=== PATIENT | male | born 1950 | race Caucasian/White ===

== ENCOUNTER → 2019-11-11 | Outpatient (REF) | payer MEDICARE ==
[~2019-11-11] MED LIST: ADV250INH INH; ASPI81TA86 PO; CLOP75TA2 PO; PRED20TA PO; VENTAER INH
[2019-11-11 19:39] LABS: HEPATITIS A ANTIBODY IGM NEGATIVE (NEGATIVE); HEPATITIS B CORE ANTIBODY IGM NEGATIVE (NEGATIVE); HEPATITIS B SURFACE ANTIGEN NEGATIVE (NEGATIVE); HEPATITIS C VIRUS ABY INDEX 0.3 INDEX (<0.8)
== END ==
LOC: M LAB REF 08:43
PROVIDERS: ATTEND Internal Medicine
DX: Z11.59 Encounter for screening for other viral diseases (principal)

== ENCOUNTER 2019-11-26 17:52 | Emergency (ER) | payer MEDICARE, SELFPAY ==
[~2019-11-26] VITALS: Ht 154.9 cm; Wt 61.5 kg
[2019-11-26] MEDS ORDERED: CLOP75TA2 PO (18:01)
[2019-11-26] MEDS ORDERED: ADV250INH INH (18:01)
[2019-11-26] MEDS ORDERED: ASPI81TA86 PO (18:01)
[2019-11-26] MEDS ORDERED: COMBIVENT RESPIMAT 100-20MCG INHALER 4GM INH ONE (18:45)
[2019-11-26] MEDS ORDERED: methylPREDNISolone 125MG 2ML VIAL IV ONE (18:45)
[2019-11-26 18:54] LABS: BASO # 0.1 10^3/uL (0.0-0.2); BASO % 0.7 % (0.0-1.0); EOS # 0.2 10^3/uL (0.0-0.5); EOS % 1.9 % (0.0-3.0); HEMATOCRIT 52.2 % (42.0-52.0); HEMOGLOBIN 17.3 g/dl (13.5-17.5); LYMPH # 1.2 10^3/uL (1.5-5.0); LYMPH % 14.3 % (24.0-44.0); MEAN CORPUSCULAR HEMOGLOBIN 33.8 pg (27.0-33.0); MEAN CORPUSCULAR HGB CONC 33.1 g/dl (32.0-36.5); MONO # 0.9 10^3/uL (0.0-0.8); MONO % 10.3 % (0.0-5.0); NEUTROPHILS # 6.1 10^3/uL (1.5-8.5); NEUTROPHILS % 72.4 % (36.0-66.0); PLATELET COUNT, AUTOMATED 173 10^3/uL (150-450); RED BLOOD COUNT 5.12 10^6/uL (4.30-6.10); WHITE BLOOD COUNT 8.4 10^3/uL (4.0-10.0)
[2019-11-26 19:25] LABS: ALBUMIN 3.6 GM/DL (3.2-5.2); ALT/SGPT 26 U/L (12-78); BILIRUBIN,DIRECT 0.1 MG/DL (0.0-0.2); BILIRUBIN,TOTAL 0.3 MG/DL (0.2-1.0); BLOOD UREA NITROGEN 15 MG/DL (7-18); CALCIUM LEVEL 9.4 MG/DL (8.8-10.2); CARBON DIOXIDE LEVEL 32 MEQ/L (21-32); CHLORIDE LEVEL 105 MEQ/L (98-107); CK-MB VALUE MASS 1.4 NG/ML (<3.6); CPK CREATINE PHOSPHOKINASE 78 U/L (39-308); CREATININE FOR GFR 1.24 MG/DL (0.70-1.30); GLOMERULAR FILTRATION RATE > 60.0 (>49); GLUCOSE, FASTING 105 MG/DL (70-100); MB/CK RELATIVE INDEX 1.79 (< OR =4); NT-PRO BNP 670 PG/ML (<125); POTASSIUM SERUM 4.7 MEQ/L (3.5-5.1); SODIUM LEVEL 140 MEQ/L (136-145); TOTAL PROTEIN 7.3 GM/DL (6.4-8.2); TROPONIN I < 0.02 NG/ML (< 0.10)
[2019-11-26] MEDS ORDERED: IPRATROPIUM 0.5MG/ALBUTEROL 2.5MG INH SOL UD 3ML (DUONEB) NEB ONE (20:15)
--- NOTE | 2019-11-26 20:38 | REPVR ---
PROCEDURE INFORMATION: Exam: XR Chest, 2 Views Exam date and time: 11/26/2019 8:11 PM Age: 69 years old Clinical indication: Shortness of breath; Additional info: SOB TECHNIQUE: Imaging protocol: XR of the chest Views: 2 views. COMPARISON: No relevant prior studies available. FINDINGS: Lungs: Unremarkable. No consolidation. Pleural space: Unremarkable. No pleural effusion. No pneumothorax. Heart/Mediastinum: Unremarkable. No cardiomegaly. Bones/joints: Unremarkable. IMPRESSION: No acute findings. Electronically signed by: Quintin Canada On 11/26/2019 20:38:21 PM
[2019-11-26] MEDS ORDERED: VENTAER INH (21:29)
[2019-11-26] MEDS ORDERED: PRED20TA PO (21:30)
[2019-11-26 21:49] VITALS: BP 143/70
--- NOTE | 2019-11-27 12:08 | ECGEPIP ---
[facility] - ED Test Date: 2019-11-26 Pat Name: PERFECTO DOBBINS Department: Room: - Gender: Male Manager Shift: : 1950 Requested By: FATOU Mendiola Order Number: [id number] Reading MD: Francisco Helm Measurements Intervals [place] Rate: 89 P: 49 SC: 155 QRS: 45 QRSD: 100 T: 47 QT: 370 QTc: 451 Interpretive Statements SINUS RHYTHM POOR R WAVE PROGRESSION BASELINE ARTIFACT AFFECTS INTERPRETATION NO PRIORS FOR COMPARISON Electronically Signed on 11-27-2019 12:07:50 EDT by Francisco Helm
== END 2019-11-26 21:51 | disposition home or self-care (01) ==
LOC: M ED 17:52
DX: J45.901 Unspecified asthma with (acute) exacerbation (principal); J44.9 Chronic obstructive pulmonary disease, unspecified; I73.9 Peripheral vascular disease, unspecified; F17.200 Nicotine dependence, unspecified, uncomplicated; Z79.82 Long term (current) use of aspirin; Z79.899 Other long term (current) drug therapy
CPT/HCPCS: 71046; 80048; 80076; 82550; 82553; 83880; 84443; 84484; 85025; 87486; 87581; 87633; 87798; 93005; 93041; 94640; 94760; 96374; 99285; J2930

== ENCOUNTER → 2019-12-02 | Outpatient (CLI) | payer MEDICARE ==
--- NOTE | 2019-12-08 14:15 | REP ---
LOW DOSE LUNG SCREENING: CLINICAL: Nicotine dependence. TECHNIQUE: Axial noncontrast images using low dose screening technique. FINDINGS: Mild/moderate emphysematous changes are appreciated. A few scattered small nodules measuring less than 4 mm are identified bilaterally. No consolidation, further significant nodule or mass lesion. No effusion. The tracheobronchial tree is patent. IMPRESSION: Lung-RADS category 2 examination. Measurement recommendations include annual surveillance. MTDD
== END ==
LOC: M RAD 08:26
PROVIDERS: ATTEND Internal Medicine
DX: Z12.2 Encounter for screening for malignant neoplasm of respiratory organs (principal); F17.210 Nicotine dependence, cigarettes, uncomplicated; J43.9 Emphysema, unspecified

== ENCOUNTER → 2020-02-07 | Outpatient (CLI) | payer MEDICARE ==
--- NOTE | 2020-02-08 08:11 | REP ---
INDICATION: PVD. History of prior angioplasty. COMPARISON: None. TECHNIQUE: Bilateral lower extremity arterial Doppler ultrasound. FINDINGS: Ankle brachial indices could not be achieved on either side due to noncompressible vessels. Extensive plaquing is observed bilaterally. Increased velocities are observed bilaterally in the common femoral arteries, left greater than right question inflow stenotic disease. There is evidence of mild stenosis in the right proximal superficial femoral artery. And on the left, the proximal and mid superficial femoral artery segments are occluded. Reconstitution distally. Left distal anterior tibial artery occlusion is also noted. Monophasic waveforms are noted throughout the left lower extremity. Monophasic waveforms are noted on the right in the tibioperoneal trunk and the distal posterior and anterior tibial arteries. Right lower extremity arterial Doppler velocity chart: Right CHEMISTRY TECHNICAL OFFICER PSV 202 cm/S Profundal 103 Proximal SFA 235 Mid SFA 71 Distal SFA 113 Popliteal 93 Proximal AMANDA 59 Tibial-peroneal trunk 65 Proximal PILER 36 Distal PILER 115 Distal AMANDA 51 Left lower extremity arterial Doppler velocity chart: Left CHEMISTRY TECHNICAL OFFICER PSV 331 cm/S Profundal 129 Proximal SFA occluded Mid SFA occluded Distal SFA 49 Popliteal 41 Proximal AMANDA 29 Tibial-peroneal trunk 43 Proximal PILER 33 Distal PILER 27 Distal AMANDA occluded IMPRESSION: Bilateral lower extremity arterial Doppler ultrasound as above with extensive atherosclerotic disease. SFA occlusion on the left. Distal AMANDA occlusion on the left. <Electronically signed by Glenroy Rob > 02/08/20 0850
== END ==
LOC: M RAD 12:48
PROVIDERS: ATTEND Internal Medicine
DX: I73.9 Peripheral vascular disease, unspecified (principal)

== ENCOUNTER → 2020-02-24 | Outpatient (CLI) | payer MEDICARE ==
[2020-02-24 15:15] LABS: HEMATOCRIT 54.1 % (42.0-52.0); HEMOGLOBIN 17.8 g/dl (13.5-17.5); MEAN CORPUSCULAR HEMOGLOBIN 33.4 pg (27.0-33.0); MEAN CORPUSCULAR HGB CONC 32.9 g/dl (32.0-36.5); MEAN CORPUSCULAR VOLUME 101.5 fl (80.0-96.0); PLATELET COUNT, AUTOMATED 166 10^3/uL (150-450); RED BLOOD COUNT 5.33 10^6/uL (4.30-6.10); WHITE BLOOD COUNT 6.8 10^3/uL (4.0-10.0)
[2020-02-24 15:44] LABS: CREATININE FOR GFR 1.29 MG/DL (0.70-1.30); GLOMERULAR FILTRATION RATE 58.8 (>49); POTASSIUM SERUM 4.4 MEQ/L (3.5-5.1)
== END ==
LOC: M LAB 14:17
PROVIDERS: ATTEND Physician Assistant
DX: I70.213 Atherosclerosis of native arteries of extremities with intermittent claudication, bilateral legs (principal); I87.2 Venous insufficiency (chronic) (peripheral)

== ENCOUNTER → 2020-03-13 | Outpatient (CLI) | payer MEDICARE ==
[~2020-03-13] MED LIST changes: +CLOPIDOGREL 75 MG TAB As Ordered ONE; +CLOPIDOGREL 75 MG TAB PO ONE; +ISOVUE-300 61% 50ML VIAL As Ordered ONE; +LIDOCAINE 1% MDV 20ML VIAL As Ordered ONE; +MIDAZOLAM INJ 2MG/2ML VIAL (J2250 PER 1MG) As Ordered ONE; +fentaNYL 100 MCG/2 ML INJECTION (J3010) As Ordered ONE; +hydrALAZINE 20MG/ML 1ML VIAL (J0360 PER 20MG) As Ordered ONE
--- NOTE | 2020-03-13 09:48 | ROOPDOC ---
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 Ultrasound-guided access right common femoral artery 2. Aortoiliofemoral arteriogram 3. Selection left profunda and left lower extremity runoff 4. 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 Angioplasty left superficial femoral and popliteal artery with 4 x 200 [place] balloon 6. Stent proximal left popliteal artery with 5 x 150 Innova stent and extension into superficial femoral artery origin with 6 x 150 Innova stent and 6 x 40 Innova stent 7. Post-dilation left popliteal femoral stent with 5 x 200 [place] balloon 8. Stent left external iliac artery with 7 x 57 express stent in proximal extension to origin of left common iliac artery with 8 x 57 express stent 9. Predilation right external iliac artery and common iliac artery with 5 x 200 [place] balloon 10. Stent proximal external iliac artery in the distal common iliac artery was 7 x 57 express stent 11. Completion arteriograms 12. Mynx closure right common femoral artery SURGEON: Favio Christie MD ANESTHESIA: Local anesthesia 4 mL lidocaine. Moderate intravenous conscious sedation was supervised by Dr. Christie. The patient was independently monitored by registered nurse assigned to the Department of radiology using automated blood pressure, EKG, and pulse oximetry. The details sedation record is permanently stored in the hospital information system. The following is a brief sedation record: Start time 07:54, stop time 09:09, Versed 2 mg IV, fentanyl 100 g IV, heparin 4000 units IV, hydralazine 20 mg IV. CONTRAST: 62 mL Isovue-300 INDICATION FOR PROCEDURE: This is a very pleasant 69-year-old gentleman with atherosclerosis of the campo artery status post intervention on the bilateral lower extremities and June of last year at another institution in [place]. Subsequently, the patient did very well until recently when he began to have increasing lifestyle limiting claudication of the left lower extremity. Risks benefits and alternatives to an arteriogram and potential intervention were explained to the patient. He was extensively counseled about smoking cessation, and we reiterated repeatedly that although intervention will feel if the patient continues to smoke. He is trying to quit at this time. Informed consent was obtained. INTERPRETATION: 1. Distal aorta is calcified but widely patent. There is significant ectasia and mild dilation of the right common iliac artery due to an 80% stenosis at the distal common iliac artery and proximal external iliac artery. Minimal flow was noted and a hypogastric. There is significant plaque in ectasia through the distal external iliac artery into the common femoral artery. Heavy calcified plaque is noted within the common femoral artery. There is flow noted into the proximal SFA and profunda on the right. There is a 75% stenosis near the origin of the left common iliac artery, mild poststenotic dilatation, and ectasia with diffuse stenosis through the distal left common iliac artery and proximal external iliac artery. There is plaque and mild stenosis noted in the common femoral artery, with good flow into the profunda, and a total occlusion of the left superficial femoral artery a few millimeters from the origin. 2. There are extensive collaterals from the left profunda to the distal SFA near Yeison's canal and the popliteal artery. There is a near occlusion at Yeison's canal and reconstitution through additional collaterals distal to this. The popliteal artery has a 70-80% stenosis proximally, and then is diminutive in size but patent distal to this. The main runoff to the foot is through the posterior tibial artery, disease but patent with no significant flow limiting stenoses. The peroneal artery is also patent to the ankle, with extensive collaterals. The proximal aspect of the vessel. The anterior tibial artery is open at the origin but then includes and does not reconstitute distally. Extensive collaterals are present at supply this area of the calf, but the main flow to the foot is through the posterior tibial artery. 3. Selection of the popliteal artery after crossing the chronic total occlusion of the left superficial femoral artery revealed we were in the true lumen. Following this, angioplasty from the origin of the left SFA through to the mid popliteal artery provided in-line flow. There was still significant residual stenosis throughout the area of occlusion, heavy plaque, full limitation, and a tight stenosis in the proximal popliteal artery. After stenting and post dilating, there was widely patent inflow from the origin of the SFA through to the tibial vessels. No extravasation embolization or dissections were noted. 4. After balloon-expandable stents were placed in the left external iliac artery extending up to the origin of the common iliac artery, there is widely patent flow through the left iliac system, dramatically improving inflow to the left lower extremity. There is, however, significant plaque noted again in the left common femoral artery, which may at some point benefit from the left common femoral endarterectomy. No extravasation, embolization, or dissections noted after stenting. 5. After pre-dilating the right external iliac artery and distal common iliac artery and stenting with a balloon-expandable stent, there is widely patent flow through the right iliac system dramatically improving inflow to the right lower extremity. There is, however, still significant heavy plaque in the right common femoral artery, which may at some point benefit from a right common femoral endarterectomy. No extravasation, embolization, or dissections noted after stenting. REPORT OF OPERATION: The patient was brought to the angiographic suite in stable condition. His bilateral groins were prepped and draped in a sterile fashion. Timeout was performed. Sedation was administered without complication. His right groin was anesthetized with local anesthesia and a microneedle was used to access the right common femoral artery under ultrasound guidance. A wire was passed through this access and the needle was removed. A 4 [place] sheath was placed and flushed with saline. Glidewire was carefully advanced through the right iliac system. This proved difficult due to heavy calcified plaque and stenosis. Eventually, we were able to navigate the wire safely into the distal aorta. Flushing catheter was placed over the wire and then aortoiliofemoral arteriogram was performed. Please interpretation above. Next, we went up and over the bifurcation with the Glidewire in the catheter and selected the left profunda artery. Left lower extremity runoff was performed. Please interpretation above. We then exchanged sheath for a 7 x 45 cm sheath and flushed the sheath with saline. A [place] catheter was used with the Glidewire to cross into the chronic total occlusion and left superficial femoral artery. Eventually, we're able to cross distal into the campo popliteal artery and a quick arteriogram confirmed we were in the true lumen. Over the wire, we angioplasties with a 4 x 200 [place] balloon along the length of the occlusion and for three-minute inflations across the proximal and mid popliteal artery. Following this, findings are noted above. We then selected a 5 x 150 Innova stent. The patient had fairly diminutive sized vessels. This was deployed in the proximal popliteal artery starting just distal to the area of heavy his stenosis, and extending up proximal to Yeison's canal. We then extended this with a 1 cm overlap proximally with a 6 x 150 Innova stent, and then stented to the origin with a 1 cm overlap with 6 x 40 Innova stent. A quick arteriogram through the sheath made sure that we were not going to detention the profunda. Following this we postdilated with a 5 x 200 [place] balloon. Widely patent flow was noted throughout the SFA with good runoff distally. We then retracted the sheath up to the proximal common iliac artery on the left. A 7 x 57 balloon- expandable stent was deployed from the external iliac artery to the distal common iliac artery, and then extended with a 1 cm overlap with an 8 x 57 lumen expandable stent. Following this, there is widely patent flow through the left iliac system with no significant residual stenosis. We then retracted the sheath into the distal right external iliac artery. We predilated the right iliac system with our 5 x 200 [place] balloon. We then selected a 7 x 57 balloon- expandable stent and deployed this from the mid external iliac artery to the distal common iliac artery on the right. Following this there is widely patent flow through the right iliac system. This concluded the procedure. The sheath was exchanged over the wire for short 7 [place] sheath and flushed with saline. A Mynx closure device was deployed on the right common femoral artery with good hemostasis. Pressure was held and sterile dressings were applied. The patient was taken to recovery in stable condition. He tolerated the procedure and the sedation well. He did have some hypertension during the procedure that was fairly persistent, but controlled with hydralazine. ESTIMATED BLOOD LOSS: Approximately 5 mL. COMPLICATIONS: None. PLAN: Okay to resume home diet and medications. The patient will take Plavix in recovery prior to discharge. He will resume his home dose of Plavix in the morning. No strenuous activity or lifting greater than 5 pounds for 72 hours. We will see the patient back in a week to check his groin access site and see how he is doing with this perfusion. We continue strongly recommend smoking cessation for limb preservation long-term. If symptoms persist in the future, I may recommend femoral endarterectomies, possibly left femoropopliteal bypass if his SFA stent spell. We did not treat the left anterior tibial artery occlusion today, and this is also something we could address in the future, but since the patient is still smoking and does not have any wounds, I did not feel it was necessary to address this today. I think improving his inflow and the SFA occlusion will be more than enough to resolve his claudication. We appreciate the opportunity to participate in the care of this patient. FAVIO CHRISTIE MD Mar 13, 2020 09:48
[2020-03-13 13:31] VITALS: BP 137/77
== END ==
LOC: M IRPRO 06:09
PROVIDERS: ATTEND Surgery Vascular Surgery
DX: I70.213 Atherosclerosis of native arteries of extremities with intermittent claudication, bilateral legs (principal); I70.92 Chronic total occlusion of artery of the extremities; I87.2 Venous insufficiency (chronic) (peripheral); F17.210 Nicotine dependence, cigarettes, uncomplicated; Z79.01 Long term (current) use of anticoagulants; Z79.82 Long term (current) use of aspirin
CPT/HCPCS: 37221; 37226; 75630; 75774; 99152; 99153; C1725; C1760; C1769; C1876; C1887; C1894; J0360; J1644; J2250; J3010; Q9967

== ENCOUNTER → 2020-04-21 | Outpatient (CLI) | payer MEDICARE ==
[~2020-04-21] MED LIST changes: -CLOPIDOGREL 75 MG TAB As Ordered ONE; -CLOPIDOGREL 75 MG TAB PO ONE; -ISOVUE-300 61% 50ML VIAL As Ordered ONE; -LIDOCAINE 1% MDV 20ML VIAL As Ordered ONE; -MIDAZOLAM INJ 2MG/2ML VIAL (J2250 PER 1MG) As Ordered ONE; -fentaNYL 100 MCG/2 ML INJECTION (J3010) As Ordered ONE; -hydrALAZINE 20MG/ML 1ML VIAL (J0360 PER 20MG) As Ordered ONE
--- NOTE | 2020-04-24 02:19 | REP ---
INDICATION: ATHEROSCLEROSIS COMPARISON: 02/07/2020 TECHNIQUE: Real time gordillo scale and color Doppler evaluation of the bilateral lower extremity arterial vasculature using linear high frequency transducer. FINDINGS: Gordillo scale and color images demonstrate moderate to severe bilateral atheromatous plaquing (right greater than left). Doppler interrogation demonstrates biphasic arterial wave forms bilaterally. Right lower extremity: ROSALIA equals 0.88. Superficial femoral artery-popliteal artery stent is patent. There is evidence of stenosis at the common femoral artery, 1.8:1 stenosis at the popliteal artery, and 5:1 stenosis at the proximal anterior tibial artery along with 2.5:1 stenosis in the mid anterior tibial artery. Area of occlusion is also identified within the distal posterior tibial artery. Left lower extremity: ROSALIA equals 0.89. Superficial femoral artery-popliteal artery stent is patent. There is evidence of stenosis at the common femoral artery, along with areas of occlusion in the mid to distal anterior tibial artery. Peak systolic velocities (cm/sec) Common femoral artery: Right 177/247; Left 218/325 Profunda femoris: Right 185; Left 207 SFA (proximal): Right 182; Left 151 SFA (mid): Right 81; Left 86 SFA (distal): Right 81; Left 66 Popliteal artery: Right 72/125; Left 71/62 AMANDA (prox.): Right 63/312; Left 72 Tibioperoneal trunk: Right 64; Left 75 ENTRY LEVEL ELECTRICIAN (prox.): Right 41; Left 91 ENTRY LEVEL ELECTRICIAN (distal): Right occluded; Left 72 AMANDA (distal): Right 58; Left occluded with evidence of reversed flow in the dorsalis pedis IMPRESSION: Moderate to significant atheromatous plaquing with areas of stenosis and occlusion as described above. <Electronically signed by Brady Thomas > 04/24/20 0125
== END ==
LOC: M RAD 12:28
PROVIDERS: ATTEND Physician Assistant
DX: I70.213 Atherosclerosis of native arteries of extremities with intermittent claudication, bilateral legs (principal)

== ENCOUNTER → 2020-11-06 | Outpatient (CLI) | payer MEDICARE ==
--- NOTE | 2020-11-08 10:34 | REP ---
INDICATION: PVD COMPARISON: 04/21/2020 TECHNIQUE: Real time crum scale and color Doppler evaluation of the bilateral lower extremity arterial vasculature using linear high frequency transducer. FINDINGS: RIGHT LOWER EXTREMITY ROSALIA: 0.79 There is significant atheromatous plaquing throughout the right lower extremity with biphasic arterial wave patterns noted at the common femoral artery and profundus followed by monophasic wave patterns to the ankle. There is 2.8:1 stenosis in the proximal anterior tibial artery with decreased flow to the ankle. LEFT LOWER EXTREMITY ROSALIA: 0.76 There is significant atheromatous plaquing noted at the common femoral artery/profundus and monophasic wave patterns are noted throughout the left lower extremity including stent. A stent is identified extending from the proximal superficial femoral artery to the popliteal artery which appears patent and without obvious luminal narrowing/stenosis or occlusion. There is 2:1 stenosis at the proximal posterior tibial artery and signs to suggest occlusion of the distal anterior tibial artery. PEAK SYSTOLIC VELOCITIES (CM/SEC) Common femoral artery: Right 180; Left 126 Profunda femoris: Right 168; Left 105 SFA (proximal): Right 202; Left (stent) 212 SFA (mid): Right 54; Left (stent) 77 SFA (distal): Right 78; Left (stent) 65 Popliteal artery: Right 94; Left 90-140 AMANDA (prox.): Right 79-223; Left 43 Tibioperoneal trunk: Right 61; Left 47 CORPORATE STRATEGY INTERN (prox.): Right 13; Left 69-120 CORPORATE STRATEGY INTERN (distal): Right 8; Left 89 AMANDA (distal): Right 59; Left occluded IMPRESSION: 1. In comparison with prior examination, ROSALIA ratios have mildly worsened and the current examination now demonstrates diffuse monophasic wave patterns. 2. Areas of narrowing and occlusion as described above <Electronically signed by Brady Thomas > 11/08/20 1032
== END ==
LOC: M RAD 13:21
PROVIDERS: ATTEND Internal Medicine
DX: I70.203 Unspecified atherosclerosis of native arteries of extremities, bilateral legs (principal); I77.1 Stricture of artery

== ENCOUNTER → 2021-04-23 | Outpatient (REF) | payer MEDICARE ==
[2021-04-23 16:50] LABS: APPEARANCE, URINE CLEAR (CLEAR); BACTERIA, URINE AUTO 1+ (NEGATIVE); BILIRUBIN, URINE AUTO NEGATIVE (NEGATIVE); BLOOD, URINE BLOOD 2+ (NEGATIVE); COLOR, URINE RED (YELLOW); GLUCOSE, URINE (UA) AUTO 1+ mg/dL (NEGATIVE); KETONE, URINE AUTO TRACE mg/dL (NEGATIVE); LEUKOCYTE ESTERASE, URINE AUTO NEGATIVE (NEGATIVE); MUCUS, URINE SMALL (NEGATIVE); NITRITE, URINE AUTO NEGATIVE (NEGATIVE); PROTEIN, URINE AUTO 2+ mg/dL (NEGATIVE); RBC, URINE AUTO TNTC /HPF (0-3); SQUAMOUS EPITHELIAL CELL UR AU 0 /HPF (0-6); WBC, URINE AUTO 14 /HPF (0-3)
== END ==
LOC: M LAB REF 16:19
PROVIDERS: ATTEND Internal Medicine
DX: R31.9 Hematuria, unspecified (principal)

== ENCOUNTER → 2021-05-02 | Outpatient (CLI) | payer MEDICARE ==
[~2021-05-02] MED LIST changes: +ISOVUE-370 76% 100ML VIAL ONE
== END ==
LOC: M PLAIMG 10:56
PROVIDERS: ATTEND Internal Medicine
DX: R31.9 Hematuria, unspecified (principal)
CPT/HCPCS: 74177; Q9967

== ENCOUNTER → 2021-05-17 | Outpatient (REF) | payer MEDICARE ==
[~2021-05-17] MED LIST changes: -ISOVUE-370 76% 100ML VIAL ONE
[2021-05-17 12:23] LABS: APPEARANCE, URINE CLEAR (CLEAR); BACTERIA, URINE AUTO NEGATIVE (NEGATIVE); BILIRUBIN, URINE AUTO NEGATIVE (NEGATIVE); BLOOD, URINE BLOOD 1+ (NEGATIVE); COLOR, URINE YELLOW (YELLOW); GLUCOSE, URINE (UA) AUTO NEGATIVE (NEGATIVE); KETONE, URINE AUTO NEGATIVE (NEGATIVE); LEUKOCYTE ESTERASE, URINE AUTO NEGATIVE (NEGATIVE); NITRITE, URINE AUTO NEGATIVE (NEGATIVE); PROTEIN, URINE AUTO NEGATIVE (NEGATIVE); RBC, URINE AUTO 2 /HPF (0-3); SPECIFIC GRAVITY URINE AUTO 1.012 (1.002-1.035); SQUAMOUS EPITHELIAL CELL UR AU 0 /HPF (0-6); WBC, URINE AUTO 1 /HPF (0-3)
== END ==
LOC: M SMT 11:48
PROVIDERS: ATTEND Physician Assistant
DX: R31.0 Gross hematuria (principal)

== ENCOUNTER → 2021-05-23 | Outpatient (CLI) | payer MEDICARE | LOC: M RAD 14:17 | PROVIDERS: ATTEND Internal Medicine | DX: R91.8 Other nonspecific abnormal finding of lung field (principal); F17.228 Nicotine dependence, chewing tobacco, with other nicotine-induced disorders ==

== ENCOUNTER → 2021-08-10 | Outpatient (CLI) | payer MEDICARE | LOC: M PLALAB 13:57 | PROVIDERS: ATTEND Physician Assistant | DX: R97.20 Elevated prostate specific antigen [PSA] (principal) ==

== ENCOUNTER → 2021-08-17 | Outpatient (REF) | payer MEDICARE ==
[2021-08-17 18:11] LABS: APPEARANCE, URINE CLEAR (CLEAR); BACTERIA, URINE AUTO NEGATIVE (NEGATIVE); BILIRUBIN, URINE AUTO NEGATIVE (NEGATIVE); BLOOD, URINE BLOOD 2+ (NEGATIVE); COLOR, URINE YELLOW (YELLOW); GLUCOSE, URINE (UA) AUTO NEGATIVE (NEGATIVE); KETONE, URINE AUTO NEGATIVE (NEGATIVE); LEUKOCYTE ESTERASE, URINE AUTO NEGATIVE (NEGATIVE); MUCUS, URINE SMALL (NEGATIVE); NITRITE, URINE AUTO NEGATIVE (NEGATIVE); PROTEIN, URINE AUTO NEGATIVE (NEGATIVE); RBC, URINE AUTO 1 /HPF (0-3); SPECIFIC GRAVITY URINE AUTO 1.009 (1.002-1.035); SQUAMOUS EPITHELIAL CELL UR AU 0 /HPF (0-6); UROBILINOGEN, URINE AUTO 0.2 mg/dL (0.0-2.0); WBC, URINE AUTO 0 /HPF (0-3)
== END ==
LOC: M SMT 16:47
PROVIDERS: ATTEND Physician Assistant
DX: R97.20 Elevated prostate specific antigen [PSA] (principal); Z79.899 Other long term (current) drug therapy
CPT/HCPCS: 81001; 87086; 88108; G0463

== ENCOUNTER 2021-10-26 02:31 | Emergency (ER) | payer MEDICARE ==
[~2021-10-26] VITALS: Ht 152.4 cm; Wt 69.1 kg
[~2021-10-26 02:31] MED LIST changes: -ASPI81TA26 PO; -ATOR40TA75 PO
[2021-10-26] MEDS ORDERED: IPRATROPIUM 0.5MG/ALBUTEROL 2.5MG INH SOL UD 3ML (DUONEB) NEB ONE (03:00)
[2021-10-26] MEDS ORDERED: KETOROLAC 30 MG/ML 1ML VIAL IV ONE (03:10)
[2021-10-26] MEDS ORDERED: traMADol 50 MG TAB (HOME DOSE PACK) PO ONE (04:00)
[2021-10-26 04:05] VITALS: BP 138/75
[2021-10-30] MEDS ORDERED: ATOR40TA75 PO (15:00)
[2021-10-30] MEDS ORDERED: ASPI81TA26 PO (15:00)
== END 2021-10-26 05:19 | disposition home or self-care (01) ==
LOC: M ED 02:31
DX: S52.572A Other intraarticular fracture of lower end of left radius, initial encounter for closed fracture (principal); S52.612A Displaced fracture of left ulna styloid process, initial encounter for closed fracture; W18.30XA Fall on same level, unspecified, initial encounter; Y92.002 Bathroom of unspecified non-institutional (private) residence as the place of occurrence of the external cause; J44.9 Chronic obstructive pulmonary disease, unspecified; F17.200 Nicotine dependence, unspecified, uncomplicated; Z79.82 Long term (current) use of aspirin; Z79.899 Other long term (current) drug therapy
CPT/HCPCS: 70450; 71046; 72125; 73110; 94640; 96374; 99283; J1885

== ENCOUNTER → 2021-10-26 | Outpatient (CLI) | payer MEDICARE ==
[~2021-10-26] MED LIST changes: +ASPI81TA26 PO; +ATOR40TA75 PO
== END ==
LOC: M SOG 11:28
PROVIDERS: ATTEND Orthopaedic Surgery Hand Surgery
DX: S52.532A Colles' fracture of left radius, initial encounter for closed fracture (principal); X58.XXXA Exposure to other specified factors, initial encounter; Y92.9 Unspecified place or not applicable; Y93.9 Activity, unspecified; Y99.9 Unspecified external cause status

== ENCOUNTER → 2021-10-30 | Outpatient (CLI) | payer MEDICARE ==
[~2021-10-30] MED LIST changes: +ASPI81TA26 PO; +ATOR40TA75 PO
== END ==
LOC: M LABSMTC 10:03
PROVIDERS: ATTEND Anesthesiology
DX: Z01.812 Encounter for preprocedural laboratory examination (principal); Z20.822 Contact with and (suspected) exposure to COVID-19

== ENCOUNTER 2021-11-02 09:26 | Day surgery (SDC) | payer MEDICARE ==
[~2021-11-02] VITALS: Ht 144.8 cm; Wt 59.0 kg
[2021-11-02] MEDS ORDERED: dexameTHASONE 10MG/1ML VIAL PRES.FREE (J1100 PER 1MG) PN ONE (10:00)
[2021-11-02] MEDS ORDERED: ROPIvacaine 0.5% 30ML INJECTION (J2795 PER 1MG) PN ONE (10:00)
[2021-11-02] MEDS ORDERED: fentaNYL 100 MCG/2 ML INJECTION IV PRN (10:00)
[2021-11-02] MEDS ORDERED: MIDAZOLAM INJ 2MG/2ML VIAL (J2250 PER 1MG) IV PRN (10:00)
[2021-11-02] MEDS ORDERED: ceFAZolin 2 GM/D5W 50 ML IV BAG (J0690 PER 500MG) As Ordered ONE (10:05)
[2021-11-02] MEDS ORDERED: ceFAZolin SOD 2 GM in IV 1 EA IV ONE (10:10)
[2021-11-02] MEDS ORDERED: BUPIVACAINE HCL 0.25% 30ML VIAL As Ordered ONE (10:53)
[2021-11-02] MEDS ORDERED: MIDAZOLAM INJ 2MG/2ML VIAL (J2250 PER 1MG) As Ordered ONE (11:33)
[2021-11-02] MEDS ORDERED: fentaNYL 100 MCG/2 ML INJECTION As Ordered ONE (11:33)
[2021-11-02] MEDS ORDERED: propofoL 200 MG/20 ML VIAL As Ordered ONE (11:35)
[2021-11-02] MEDS ORDERED: ONDANSETRON 4MG 2ML VIAL As Ordered ONE (11:35)
[2021-11-02] MEDS ORDERED: ACETAMINOPHEN 1000MG 100ML IV BTL (OFIRMEV) (J0131 PER 10MG) As Ordered ONE (11:35)
[2021-11-02] MEDS ORDERED: dexameTHASONE 4 MG/ML 1ML VIAL (J1100 PER 1MG) As Ordered ONE (11:40)
[2021-11-02] MEDS ORDERED: PERC5TAB12 PO (12:48)
[2021-11-02 13:20] VITALS: BP 153/72
[2021-11-03] MEDS ORDERED: UNRESOLVED CLARIFICATION ENTRY XX SCH (00:01)
== END 2021-11-02 13:43 | disposition home or self-care (01) ==
LOC: M SDC 09:26
PROVIDERS: ATTEND Orthopaedic Surgery Hand Surgery
DX: S52.532A Colles' fracture of left radius, initial encounter for closed fracture (principal); W19.XXXA Unspecified fall, initial encounter; Y92.008 Other place in unspecified non-institutional (private) residence as the place of occurrence of the external cause; Y93.9 Activity, unspecified; Y99.9 Unspecified external cause status; J44.9 Chronic obstructive pulmonary disease, unspecified; F17.210 Nicotine dependence, cigarettes, uncomplicated; Z79.51 Long term (current) use of inhaled steroids; Z79.02 Long term (current) use of antithrombotics/antiplatelets; I73.9 Peripheral vascular disease, unspecified; Z79.899 Other long term (current) drug therapy
CPT/HCPCS: 25609; 64415; 76000; C1713; J0131; J0690; J1100; J2250; J2405; J3010

== ENCOUNTER → 2021-11-20 | Outpatient (CLI) | payer MEDICARE ==
[~2021-11-20] MED LIST changes: +PERC5TAB12 PO
== END ==
LOC: M SOG 08:32
PROVIDERS: ATTEND Physician Assistant
DX: Z47.89 Encounter for other orthopedic aftercare (principal); S52.612D Displaced fracture of left ulna styloid process, subsequent encounter for closed fracture with routine healing

== ENCOUNTER → 2021-12-11 | Outpatient (CLI) | payer MEDICARE | LOC: M SOG 08:12 | PROVIDERS: ATTEND Physician Assistant | DX: Z47.89 Encounter for other orthopedic aftercare (principal); S52.613D Displaced fracture of unspecified ulna styloid process, subsequent encounter for closed fracture with routine healing; S52.502D Unspecified fracture of the lower end of left radius, subsequent encounter for closed fracture with routine healing ==

== ENCOUNTER → 2022-01-08 | Outpatient (CLI) | payer MEDICARE | LOC: M SOG 08:29 | PROVIDERS: ATTEND Orthopaedic Surgery Hand Surgery | DX: Z48.89 Encounter for other specified surgical aftercare (principal) ==

== ENCOUNTER → 2022-02-19 | Outpatient (CLI) | payer MEDICARE ==
[2022-02-19 17:47] LABS: APPEARANCE, URINE MANUAL CLEAR (CLEAR); COLOR, URINE MANUAL LT YELLOW (YELLOW)
[2022-02-19 17:49] LABS: BILIRUBIN, URINE MANUAL NEGATIVE (NEGATIVE); BLOOD URINE MANUAL TRACE (NEGATIVE); GLUCOSE, URINE (UA) MANUAL NEGATIVE (NEGATIVE); KETONE, URINE MANUAL NEGATIVE (NEGATIVE); LEUKOCYTE ESTERASE, URINE MAN NEGATIVE (NEGATIVE); NITRITE, URINE MANUAL NEGATIVE (NEGATIVE); PROTEIN, URINE MANUAL NEGATIVE (NEGATIVE); SPECIFIC GRAVITY,URINE MANUAL 1.015 (1.002-1.035); UROBILINOGEN, URINE MANUAL NORMAL (NORMAL)
[2022-02-19 18:37] LABS: WBC, URINE 0-1 /hpf (0-3)
[2022-02-19 18:38] LABS: BACTERIA, URINE NONE SEEN; HYALINE CAST, URINE NONE SEEN /lpf (0-1); MUCUS, URINE SMALL AMOUNT (NEGATIVE); SQUAMOUS EPITHELIAL CELL URINE SMALL AMOUNT /hpf (SMALL AMT)
== END ==
LOC: M PLALAB 10:22
PROVIDERS: ATTEND Physician Assistant
DX: R97.20 Elevated prostate specific antigen [PSA] (principal)

== ENCOUNTER → 2022-02-26 | Outpatient (CLI) | payer MEDICARE ==
[2022-02-26 14:47] LABS: APPEARANCE, URINE MANUAL CLEAR (CLEAR); COLOR, URINE MANUAL LT YELLOW (YELLOW)
[2022-02-26 14:48] LABS: PH,URINE MAN 5.5 UNITS (5.0 - 7.0)
[2022-02-26 14:49] LABS: BILIRUBIN, URINE MANUAL NEGATIVE (NEGATIVE); BLOOD URINE MANUAL POSITIVE (NEGATIVE); GLUCOSE, URINE (UA) MANUAL NEGATIVE (NEGATIVE); KETONE, URINE MANUAL NEGATIVE (NEGATIVE); LEUKOCYTE ESTERASE, URINE MAN NEGATIVE (NEGATIVE); NITRITE, URINE MANUAL NEGATIVE (NEGATIVE); PROTEIN, URINE MANUAL NEGATIVE (NEGATIVE); UROBILINOGEN, URINE MANUAL NORMAL (NORMAL)
[2022-02-26 15:03] LABS: BLOOD UREA NITROGEN 13 MG/DL (9-23); CALCIUM LEVEL 8.6 MG/DL (8.3-10.6); CARBON DIOXIDE LEVEL 25 MMOL/L (20-31); CHLORIDE LEVEL 107 MMOL/L (98-107); CREATININE FOR GFR 1.15 MG/DL (0.70-1.30); GLOMERULAR FILTRATION RATE > 60.0 (>42); GLUCOSE, FASTING 107 MG/DL (74-106); POTASSIUM SERUM 4.6 MMOL/L (3.5-5.1); SODIUM LEVEL 138 MMOL/L (136-145)
[2022-02-26 15:04] LABS: BACTERIA, URINE NONE SEEN; HYALINE CAST, URINE NONE SEEN /lpf (0-1); MUCUS, URINE SMALL AMOUNT (NEGATIVE); SQUAMOUS EPITHELIAL CELL URINE SMALL AMOUNT /hpf (SMALL AMT)
== END ==
LOC: M PLALAB 11:08
PROVIDERS: ATTEND Physician Assistant
DX: R97.20 Elevated prostate specific antigen [PSA] (principal); Z87.898 Personal history of other specified conditions

== ENCOUNTER → 2022-03-01 | Outpatient (CLI) | payer MEDICARE ==
[~2022-03-01] MED LIST changes: +ISOVUE-370 76% 100ML VIAL As Ordered ONE
== END ==
LOC: M RAD 13:49
PROVIDERS: ATTEND Physician Assistant
DX: Z87.898 Personal history of other specified conditions (principal)
CPT/HCPCS: 74178; Q9967

== ENCOUNTER → 2022-03-19 | Outpatient (REF) | payer MEDICARE ==
[~2022-03-19] MED LIST changes: -ISOVUE-370 76% 100ML VIAL As Ordered ONE
== END ==
LOC: M SMT 16:45
PROVIDERS: ATTEND Urology
DX: R31.0 Gross hematuria (principal)

== ENCOUNTER → 2022-04-17 | Outpatient (REF) | payer MEDICARE ==
[~2022-04-17] MED LIST changes: +VALS40TA9 PO
[2022-04-17 18:34] LABS: INR 0.88; PROTHROMBIN TIME 12.1 SECONDS (12.5-14.5)
== END ==
LOC: M LAB REF 16:18
PROVIDERS: ATTEND Internal Medicine
DX: Z01.818 Encounter for other preprocedural examination (principal)

== ENCOUNTER → 2022-04-21 | Outpatient (CLI) | payer MEDICARE | LOC: M LABSMTC 11:21 | PROVIDERS: ATTEND Anesthesiology | DX: Z01.812 Encounter for preprocedural laboratory examination (principal); Z11.52 Encounter for screening for COVID-19 ==

== ENCOUNTER → 2022-04-22 | Outpatient (CLI) | payer MEDICARE ==
[2022-04-22 15:54] LABS: ALBUMIN 3.6 G/DL (3.2-5.2); ALKALINE PHOSPHATASE 97 U/L (46-116); ALT/SGPT 22 U/L (7.0-40); AST/SGOT 25 U/L (<34); BILIRUBIN,TOTAL 0.6 MG/DL (0.3-1.2); BLOOD UREA NITROGEN 20 MG/DL (9-23); CARBON DIOXIDE LEVEL 23 MMOL/L (20-31); CHLORIDE LEVEL 102 MMOL/L (98-107); CREATININE FOR GFR 1.25 MG/DL (0.70-1.30); GLOMERULAR FILTRATION RATE > 60.0 (>42); GLUCOSE, FASTING 89 MG/DL (74-106); POTASSIUM SERUM 4.7 MMOL/L (3.5-5.1); SODIUM LEVEL 136 MMOL/L (136-145); TOTAL PROTEIN 7.2 G/DL (5.7-8.2)
[2022-04-22 15:55] LABS: HEMATOCRIT 51.9 % (42.0-52.0); HEMOGLOBIN 16.7 g/dl (13.5-17.5); MEAN CORPUSCULAR HEMOGLOBIN 32.1 pg (27.0-33.0); MEAN CORPUSCULAR HGB CONC 32.2 g/dl (32.0-36.5); MEAN CORPUSCULAR VOLUME 99.8 fl (80.0-96.0); PLATELET COUNT, AUTOMATED 230 10^3/uL (150-450); WHITE BLOOD COUNT 10.4 10^3/uL (4.0-10.0)
[2022-04-22 16:14] LABS: PROTHROMBIN TIME 13.4 SECONDS (12.5-14.5)
== END ==
LOC: M PLALAB 12:11
PROVIDERS: ATTEND Urology
DX: F17.210 Nicotine dependence, cigarettes, uncomplicated (principal); D49.4 Neoplasm of unspecified behavior of bladder

== ENCOUNTER 2022-04-25 08:46 | Day surgery (SDC) | payer MEDICARE ==
[~2022-04-25] VITALS: Ht 152.4 cm; Wt 58.1 kg
[~2022-04-25 08:46] MED LIST changes: +ceFAZolin SOD 2 GM in IV 1 EA IV ONE
[2022-04-25] MEDS ORDERED: LR 1,000 ML IV SCH ×2 (09:55→11:15)
[2022-04-25] MEDS ORDERED: ONDANSETRON 4MG 2ML VIAL As Ordered ONE (10:00)
[2022-04-25] MEDS ORDERED: LIDOCAINE 2% 100MG/5ML SDV (FOR ANES.) As Ordered ONE (10:00)
[2022-04-25] MEDS ORDERED: ROCURONIUM BROMIDE 50MG/5ML VIAL As Ordered ONE (10:00)
[2022-04-25] MEDS ORDERED: SUGAMMADEX SODIUM 500 MG/5 ML VIAL (BRIDION) As Ordered ONE (10:00)
[2022-04-25] MEDS ORDERED: fentaNYL 100 MCG/2 ML INJECTION As Ordered ONE (10:00)
[2022-04-25] MEDS ORDERED: MIDAZOLAM INJ 2MG/2ML VIAL As Ordered ONE (10:00)
[2022-04-25] MEDS ORDERED: KETOROLAC 60MG 2ML VIAL As Ordered ONE (11:11)
[2022-04-25] MEDS ORDERED: MACR100C43 PO (11:13)
[2022-04-25] MEDS ORDERED: PYRI1TAB5 PO (11:13)
[2022-04-25] MEDS ORDERED: OXYB5TAB10 PO (11:13)
[2022-04-25] MEDS ORDERED: oxyCODONE 5MG TAB PO PRN (11:15)
[2022-04-25] MEDS ORDERED: HYDROMORPHONE HCL 0.5 MG/ 0.5 ML SYRINGE IV PRN (11:15)
[2022-04-25] MEDS ORDERED: ONDANSETRON 4MG 2ML VIAL IV PRN (11:15)
[2022-04-25] MEDS ORDERED: fentaNYL 100 MCG/2 ML INJECTION IV PRN (11:15)
[2022-04-25] MEDS ORDERED: PHENYLephrine 500MCG 5ML (100MCG/ML) SYRINGE As Ordered ONE (11:20)
[2022-04-25 12:37] VITALS: BP 196/91
== END 2022-04-25 12:35 | disposition home or self-care (01) ==
LOC: M SDC 08:46
PROVIDERS: ATTEND Urology
DX: N28.9 Disorder of kidney and ureter, unspecified (principal); I10 Essential (primary) hypertension; E78.5 Hyperlipidemia, unspecified; I73.9 Peripheral vascular disease, unspecified; F17.210 Nicotine dependence, cigarettes, uncomplicated; J44.9 Chronic obstructive pulmonary disease, unspecified; Z79.02 Long term (current) use of antithrombotics/antiplatelets; Z79.51 Long term (current) use of inhaled steroids; Z79.899 Other long term (current) drug therapy; Z79.82 Long term (current) use of aspirin
CPT/HCPCS: 52240; 52332; 88305; C2617; J0690; J1100; J2250; J2370; J2405; J3010

== ENCOUNTER → 2022-10-21 | Outpatient (REF) | payer MEDICARE ==
[~2022-10-21] MED LIST changes: +MACR100C43 PO; +OXYB5TAB10 PO; +PYRI1TAB5 PO; -ceFAZolin SOD 2 GM in IV 1 EA IV ONE
[2022-10-21 19:04] LABS: APPEARANCE, URINE CLEAR (CLEAR); BACTERIA, URINE AUTO NEGATIVE (NEGATIVE); BILIRUBIN, URINE AUTO NEGATIVE (NEGATIVE); BLOOD, URINE BLOOD 1+ (NEGATIVE); COLOR, URINE YELLOW (YELLOW); GLUCOSE, URINE (UA) AUTO NEGATIVE (NEGATIVE); KETONE, URINE AUTO NEGATIVE (NEGATIVE); LEUKOCYTE ESTERASE, URINE AUTO NEGATIVE (NEGATIVE); MUCUS, URINE SMALL (NEGATIVE); NITRITE, URINE AUTO NEGATIVE (NEGATIVE); PROTEIN, URINE AUTO NEGATIVE (NEGATIVE); RBC, URINE AUTO 1 /HPF (0-3); SPECIFIC GRAVITY URINE AUTO 1.011 (1.002-1.035); SQUAMOUS EPITHELIAL CELL UR AU 0 /HPF (0-6); UROBILINOGEN, URINE AUTO 0.2 mg/dL (0.0-2.0); WBC, URINE AUTO 0 /HPF (0-3)
== END ==
LOC: M SMT 17:21
PROVIDERS: ATTEND Urology
DX: Z85.51 Personal history of malignant neoplasm of bladder (principal)

== ENCOUNTER → 2022-12-20 | Outpatient (CLI) | payer MEDICARE ==
[~2022-12-20] MED LIST changes: -OXYB5TAB10 PO; +OXYB5TAB11 PO
== END ==
LOC: M RAD 09:33
PROVIDERS: ATTEND Internal Medicine
DX: Z12.2 Encounter for screening for malignant neoplasm of respiratory organs (principal); F17.210 Nicotine dependence, cigarettes, uncomplicated; R91.8 Other nonspecific abnormal finding of lung field; J43.2 Centrilobular emphysema

== ENCOUNTER → 2023-01-24 | Outpatient (REF) | payer MEDICARE ==
[2023-01-24 18:55] LABS: APPEARANCE, URINE CLEAR (CLEAR); BACTERIA, URINE AUTO NEGATIVE (NEGATIVE); BILIRUBIN, URINE AUTO NEGATIVE (NEGATIVE); BLOOD, URINE BLOOD 1+ (NEGATIVE); COLOR, URINE YELLOW (YELLOW); GLUCOSE, URINE (UA) AUTO NEGATIVE (NEGATIVE); KETONE, URINE AUTO NEGATIVE (NEGATIVE); LEUKOCYTE ESTERASE, URINE AUTO NEGATIVE (NEGATIVE); NITRITE, URINE AUTO NEGATIVE (NEGATIVE); PROTEIN, URINE AUTO NEGATIVE (NEGATIVE); RBC, URINE AUTO 3 /HPF (0-3); SPECIFIC GRAVITY URINE AUTO 1.014 (1.002-1.035); SQUAMOUS EPITHELIAL CELL UR AU 0 /HPF (0-6); UROBILINOGEN, URINE AUTO 0.2 mg/dL (0.0-2.0); WBC, URINE AUTO 0 /HPF (0-3)
== END ==
LOC: M SMT 16:54
PROVIDERS: ATTEND Urology
DX: Z85.51 Personal history of malignant neoplasm of bladder (principal)

== ENCOUNTER → 2023-05-21 | Outpatient (REF) | payer MEDICARE ==
[~2023-05-21] MED LIST changes: -OXYB5TAB11 PO; +OXYB5TAB14 PO
[2023-05-21 18:18] LABS: APPEARANCE, URINE CLEAR (CLEAR); BACTERIA, URINE AUTO NEGATIVE (NEGATIVE); BILIRUBIN, URINE AUTO NEGATIVE (NEGATIVE); BLOOD, URINE BLOOD NEGATIVE (NEGATIVE); COLOR, URINE YELLOW (YELLOW); GLUCOSE, URINE (UA) AUTO NEGATIVE (NEGATIVE); KETONE, URINE AUTO TRACE mg/dL (NEGATIVE); LEUKOCYTE ESTERASE, URINE AUTO NEGATIVE (NEGATIVE); MUCUS, URINE SMALL (NEGATIVE); NITRITE, URINE AUTO NEGATIVE (NEGATIVE); PROTEIN, URINE AUTO 1+ mg/dL (NEGATIVE); RBC, URINE AUTO 2 /HPF (0-3); SPECIFIC GRAVITY URINE AUTO 1.017 (1.002-1.035); SQUAMOUS EPITHELIAL CELL UR AU 0 /HPF (0-6); WBC, URINE AUTO 0 /HPF (0-3)
== END ==
LOC: M SMT 18:00
PROVIDERS: ATTEND Urology
DX: Z85.51 Personal history of malignant neoplasm of bladder (principal)

== ENCOUNTER 2023-08-06 12:41 | Day surgery (SDC) | payer MEDICARE ==
[~2023-08-06] VITALS: Ht 152.4 cm; Wt 55.8 kg
[2023-08-06] MEDS: LIDOCAINE 3.5 % 1ML OPHTH TOPICAL GEL OU ONE (14:47)
[2023-08-06] MEDS ORDERED: MIDAZOLAM INJ 2MG/2ML VIAL As Ordered ONE (15:42)
[2023-08-06] MEDS ORDERED: fentaNYL 100 MCG/2 ML INJECTION As Ordered ONE (15:49)
[2023-08-06] MEDS: POVIDONE-IODINE 5% OPHTH PREP SOL 30ML As Ordered ONE (16:00)
[2023-08-06] MEDS ORDERED: LABETALOL 100MG/20ML VIAL As Ordered ONE (16:04)
[2023-08-06] MEDS: LIDOCAINE 2% W/EPINEPHRINE 20ML VIAL **PRES FREE As Ordered ONE (16:07)
[2023-08-06] MEDS: TOBRADEX OPHTH OINT 3.5 GM As Ordered ONE (16:09)
[2023-08-06 16:20] VITALS: BP 176/89; TEMP 98.2; O2SAT 97
== END 2023-08-06 16:50 | disposition home or self-care (01) ==
LOC: M SDC 12:41
PROVIDERS: ATTEND Ophthalmology
DX: H02.103 Unspecified ectropion of right eye, unspecified eyelid (principal); I10 Essential (primary) hypertension; E78.5 Hyperlipidemia, unspecified; I73.9 Peripheral vascular disease, unspecified; Z79.02 Long term (current) use of antithrombotics/antiplatelets; J44.9 Chronic obstructive pulmonary disease, unspecified; Z79.51 Long term (current) use of inhaled steroids; Z79.899 Other long term (current) drug therapy; F17.218 Nicotine dependence, cigarettes, with other nicotine-induced disorders
CPT/HCPCS: 67924; J1920; J2250; J3010

== ENCOUNTER → 2023-08-20 | Outpatient (REF) | payer MEDICARE ==
[2023-08-20 15:29] LABS: APPEARANCE, URINE CLEAR (CLEAR); BACTERIA, URINE AUTO NEGATIVE (NEGATIVE); BILIRUBIN, URINE AUTO NEGATIVE (NEGATIVE); BLOOD, URINE BLOOD 1+ (NEGATIVE); COLOR, URINE YELLOW (YELLOW); GLUCOSE, URINE (UA) AUTO NEGATIVE (NEGATIVE); KETONE, URINE AUTO NEGATIVE (NEGATIVE); LEUKOCYTE ESTERASE, URINE AUTO NEGATIVE (NEGATIVE); NITRITE, URINE AUTO NEGATIVE (NEGATIVE); PROTEIN, URINE AUTO NEGATIVE (NEGATIVE); RBC, URINE AUTO 4 /HPF (0-3); SPECIFIC GRAVITY URINE AUTO 1.011 (1.002-1.035); SQUAMOUS EPITHELIAL CELL UR AU 0 /HPF (0-6); UROBILINOGEN, URINE AUTO 0.2 mg/dL (0.0-2.0); WBC, URINE AUTO 0 /HPF (0-3)
== END ==
LOC: M SMT 14:48
PROVIDERS: ATTEND Urology
DX: Z85.51 Personal history of malignant neoplasm of bladder (principal)

== ENCOUNTER → 2023-11-19 | Outpatient (REF) | payer MEDICARE ==
[2023-11-19 18:04] LABS: APPEARANCE, URINE CLEAR (CLEAR); BACTERIA, URINE AUTO NEGATIVE (NEGATIVE); BILIRUBIN, URINE AUTO NEGATIVE (NEGATIVE); BLOOD, URINE BLOOD 1+ (NEGATIVE); COLOR, URINE YELLOW (YELLOW); GLUCOSE, URINE (UA) AUTO NEGATIVE (NEGATIVE); KETONE, URINE AUTO NEGATIVE (NEGATIVE); LEUKOCYTE ESTERASE, URINE AUTO NEGATIVE (NEGATIVE); NITRITE, URINE AUTO NEGATIVE (NEGATIVE); PROTEIN, URINE AUTO NEGATIVE (NEGATIVE); RBC, URINE AUTO 1 /HPF (0-3); SPECIFIC GRAVITY URINE AUTO 1.012 (1.002-1.035); SQUAMOUS EPITHELIAL CELL UR AU 0 /HPF (0-6); UROBILINOGEN, URINE AUTO 0.2 mg/dL (0.0-2.0); WBC, URINE AUTO 0 /HPF (0-3)
== END ==
LOC: M SMT 17:21
PROVIDERS: ATTEND Urology
DX: Z08 Encounter for follow-up examination after completed treatment for malignant neoplasm (principal); Z85.51 Personal history of malignant neoplasm of bladder; Z79.82 Long term (current) use of aspirin; Z79.899 Other long term (current) drug therapy; Z79.51 Long term (current) use of inhaled steroids; Z83.3 Family history of diabetes mellitus; F17.210 Nicotine dependence, cigarettes, uncomplicated

== ENCOUNTER → 2024-02-18 | Outpatient (REF) | payer MEDICARE ==
[~2024-02-18] MED LIST changes: -ADV250INH INH; +ADVA1AER9 INH
[2024-02-18 18:42] LABS: APPEARANCE, URINE CLEAR (CLEAR); BACTERIA, URINE AUTO NEGATIVE (NEGATIVE); BILIRUBIN, URINE AUTO NEGATIVE (NEGATIVE); BLOOD, URINE BLOOD NEGATIVE (NEGATIVE); COLOR, URINE YELLOW (YELLOW); GLUCOSE, URINE (UA) AUTO NEGATIVE (NEGATIVE); KETONE, URINE AUTO NEGATIVE (NEGATIVE); LEUKOCYTE ESTERASE, URINE AUTO NEGATIVE (NEGATIVE); MUCUS, URINE SMALL (NEGATIVE); NITRITE, URINE AUTO NEGATIVE (NEGATIVE); PROTEIN, URINE AUTO NEGATIVE (NEGATIVE); RBC, URINE AUTO 1 /HPF (0-3); SQUAMOUS EPITHELIAL CELL UR AU 0 /HPF (0-6); UROBILINOGEN, URINE AUTO 0.2 mg/dL (0.0-2.0); WBC, URINE AUTO 0 /HPF (0-3)
== END ==
LOC: M SMT 17:10
PROVIDERS: ATTEND Urology
DX: Z85.51 Personal history of malignant neoplasm of bladder (principal)

== ENCOUNTER 2024-05-02 20:47 | Inpatient (IN) | payer MEDICARE ==
[~2024-05-02] VITALS: Ht 157.5 cm; Wt 64.3 kg
[2024-05-02] MEDS ORDERED: FLUT1BLS8 INH (20:57)
[2024-05-03] VITALS (8 sets, daily range): BP systolic 123–176; BP diastolic 60–85; TEMP 97.6–99; O2SAT 92–96
[2024-05-03 00:26] LABS: BASO # 0.1 10^3/uL (0.0-0.2); BASO % 0.5 % (0.0-1.0); EOS % 0.2 % (0.0-3.0); HEMATOCRIT 46.6 % (42.0-52.0); HEMOGLOBIN 15.5 g/dl (13.5-17.5); LYMPH # 1.1 10^3/uL (1.5-5.0); LYMPH % 8.3 % (24.0-44.0); MEAN CORPUSCULAR HEMOGLOBIN 33.5 pg (27.0-33.0); MEAN CORPUSCULAR HGB CONC 33.3 g/dl (32.0-36.5); MEAN CORPUSCULAR VOLUME 100.6 fl (80.0-96.0); MONO # 0.7 10^3/uL (0.0-0.8); MONO % 5.1 % (2.0-8.0); NEUTROPHILS # 11.6 10^3/uL (1.5-8.5); NEUTROPHILS % 85.4 % (36.0-66.0); PLATELET COUNT, AUTOMATED 157 10^3/uL (150-450); RED BLOOD COUNT 4.63 10^6/uL (4.30-6.10); WHITE BLOOD COUNT 13.5 10^3/uL (4.0-10.0)
[2024-05-03 00:30] LABS: BLOOD UREA NITROGEN 11 MG/DL (9-23); CALCIUM LEVEL 8.7 MG/DL (8.3-10.6); CARBON DIOXIDE LEVEL 20 MMOL/L (20-31); CHLORIDE LEVEL 108 MMOL/L (98-107); CREATININE FOR GFR 1.05 MG/DL (0.70-1.30); GLOMERULAR FILTRATION RATE > 60.0 (>42); GLUCOSE, FASTING 120 MG/DL (74-106); POTASSIUM SERUM 4.2 MMOL/L (3.5-5.1); SODIUM LEVEL 139 MMOL/L (136-145)
[2024-05-03 01:03] LABS: ETHYL ALCOHOL (ETHANOL) 0.034 % (0.000-0.010)
[2024-05-03] MEDS: MORPHINE 2 MG/ML 1ML VIAL IV ONE (01:05)
[2024-05-03] MEDS: IPRATROPIUM 0.5MG/ALBUTEROL 2.5MG INH SOL UD 3ML (DUONEB) NEB ONE (01:43)
[2024-05-03] MEDS: BOOSTRIX VACCINE (TETANUS/DIPHTH/ACEL. PERTUSSIS) 0.5ML SYR IM.IMMUN ONE (02:12)
[2024-05-03] MEDS: ceFAZolin SOD 2 GM in IV 1 EA IV ONE (02:12)
[2024-05-03] MEDS ORDERED: ceFAZolin SOD 2 GM in DEXTROSE 5% (D5W) ADV/MINI-BAG 50 ML IV SCH (02:15)
[2024-05-03] MEDS ORDERED: MOM 30ML SUSPENSION UDC PO PRN (02:15)
[2024-05-03] MEDS: NS (Normal Saline) 0.9% 1,000 ML IV SCH ×2 (02:49→07:36)
[2024-05-03] MEDS: NICOTINE 21MG/24HR 1 EA TRANSDERMAL TD ONE (02:52)
[2024-05-03] MEDS ORDERED: ALBU8.5H INH (03:27)
[2024-05-03] MEDS ORDERED: HOME MED LIST COMPLETE! XX SCH (03:30)
[2024-05-03] MEDS ORDERED: LORazepam 2 MG TAB PO PRN (04:15)
[2024-05-03] MEDS ORDERED: MORPHINE 4 MG/ML 1ML VIAL IV PRN (04:20)
[2024-05-03] MEDS ORDERED: NORCO, ANEXSIA 5/325MG TABLET (HYDROcodone/ACETAMINOPHEN) PO PRN (04:20)
[2024-05-03] MEDS ORDERED: MORPHINE 2 MG/ML 1ML VIAL IV PRN (04:25)
[2024-05-03] MEDS: THIAMINE 100 MG TAB PO SCH (05:00)
[2024-05-03 07:42] LABS: HEMATOCRIT 45.7 % (42.0-52.0); HEMOGLOBIN 15.2 g/dl (13.5-17.5); MEAN CORPUSCULAR HGB CONC 33.3 g/dl (32.0-36.5); MEAN CORPUSCULAR VOLUME 99.1 fl (80.0-96.0); PLATELET COUNT, AUTOMATED 157 10^3/uL (150-450); RED BLOOD COUNT 4.61 10^6/uL (4.30-6.10); WHITE BLOOD COUNT 9.9 10^3/uL (4.0-10.0)
[2024-05-03 07:47] LABS: ALBUMIN 3.3 G/DL (3.2-5.2); ALKALINE PHOSPHATASE 96 U/L (40-129); ALT/SGPT 19 U/L (7.0-40); AST/SGOT 25 U/L (<34); BILIRUBIN,TOTAL 0.6 MG/DL (0.3-1.2); BLOOD UREA NITROGEN 10 MG/DL (9-23); CALCIUM LEVEL 8.6 MG/DL (8.3-10.6); CARBON DIOXIDE LEVEL 22 MMOL/L (20-31); CHLORIDE LEVEL 110 MMOL/L (98-107); CREATININE FOR GFR 1.07 MG/DL (0.70-1.30); GLOMERULAR FILTRATION RATE > 60.0 (>42); GLUCOSE, FASTING 107 MG/DL (74-106); POTASSIUM SERUM 4.3 MMOL/L (3.5-5.1); SODIUM LEVEL 142 MMOL/L (136-145); TOTAL PROTEIN 6.9 G/DL (5.7-8.2)
[2024-05-03] MEDS: ADVAIR HFA 115/21MCG INHALER INH SCH (09:06)
[2024-05-03] MEDS: TIOTROPIUM INHALER/CAPSULE (SPIRIVA) INH SCH (09:06)
[2024-05-03] MEDS ORDERED: SUGAMMADEX SODIUM 500 MG/5 ML VIAL (BRIDION) As Ordered ONE (09:19)
[2024-05-03] MEDS ORDERED: propofoL 200 MG/20 ML VIAL As Ordered ONE (09:19)
[2024-05-03] MEDS ORDERED: fentaNYL 100 MCG/2 ML INJECTION As Ordered ONE (09:19)
[2024-05-03] MEDS ORDERED: LIDOCAINE 2% 100MG/5ML SDV (FOR ANES.) As Ordered ONE (09:19)
[2024-05-03] MEDS ORDERED: ROCURONIUM BROMIDE 50MG/5ML VIAL As Ordered ONE (09:19)
[2024-05-03] MEDS ORDERED: ONDANSETRON 4MG 2ML VIAL As Ordered ONE (09:19)
[2024-05-03] MEDS ORDERED: ceFAZolin SOD 2 GM in IV 1 EA IV SCH (10:00)
[2024-05-03] MEDS: ceFAZolin 2 GM/D5W 50 ML IV BAG As Ordered ONE (10:16)
[2024-05-03] MEDS ORDERED: ACETAMINOPHEN 1000MG/100ML IV BAG As Ordered ONE (10:29)
[2024-05-03] MEDS ORDERED: GLYCOPYRROLATE INJ 0.2 MG/ML 2 ML VIAL As Ordered ONE (11:29)
[2024-05-03] MEDS ORDERED: dexmedeTOMIDine (4MCG/ML)200MCG/50ML BTL (PRECEDEX) As Ordered ONE (11:52)
[2024-05-03] MEDS: TRANEXAMIC ACID 100 MG/ML 10ML VIAL As Ordered ONE (12:49)
[2024-05-03] MEDS: BUPivacaine LIPOSOME/PF 266MG 20ML VIAL (13.3MG/ML)(EXPAREL) As Ordered ONE (13:00)
[2024-05-03] MEDS ORDERED: fentaNYL 100 MCG/2 ML INJECTION IV PRN (13:30)
[2024-05-03] MEDS ORDERED: ONDANSETRON 4MG 2ML VIAL IV PRN (13:30)
[2024-05-03] MEDS ORDERED: HYDROMORPHONE HCL 0.5 MG/ 0.5 ML SYRINGE IV PRN (13:30)
[2024-05-03] MEDS ORDERED: oxyCODONE 5MG TAB PO PRN (13:30)
[2024-05-03] MEDS ORDERED: IPRATROPIUM 0.5MG/ALBUTEROL 2.5MG INH SOL UD 3ML (DUONEB) NEB PRN (13:30)
[2024-05-03] MEDS: MULTIVITAMINS/MINERALS THERAP 1 TAB PO SCH (15:26)
[2024-05-03] MEDS: FOLIC ACID 1MG TAB PO SCH (15:26)
[2024-05-03] MEDS: ATORVASTATIN 20 MG TAB PO SCH (15:26)
[2024-05-03] MEDS: VALSARTAN 40MG TABLET (DIOVAN) PO SCH (15:27)
[2024-05-03] MEDS: ceFAZolin SOD 2 GM in IV 1 EA IV SCH (17:37)
[2024-05-04 00:13] VITALS: BP 134/63; TEMP 98.2; O2SAT 94
[2024-05-04 03:53] VITALS: BP 135/65; TEMP 98.4; O2SAT 94
[2024-05-04 05:28] LABS: HEMATOCRIT 41.4 % (42.0-52.0); HEMOGLOBIN 13.3 g/dl (13.5-17.5); MEAN CORPUSCULAR HGB CONC 32.1 g/dl (32.0-36.5); MEAN CORPUSCULAR VOLUME 102.7 fl (80.0-96.0); PLATELET COUNT, AUTOMATED 134 10^3/uL (150-450); RED BLOOD COUNT 4.03 10^6/uL (4.30-6.10); WHITE BLOOD COUNT 13.6 10^3/uL (4.0-10.0)
[2024-05-04 06:06] LABS: ALBUMIN 2.7 G/DL (3.2-5.2); ALKALINE PHOSPHATASE 77 U/L (40-129); ALT/SGPT 14 U/L (7.0-40); AST/SGOT 29 U/L (<34); BILIRUBIN,TOTAL 0.3 MG/DL (0.3-1.2); BLOOD UREA NITROGEN 16 MG/DL (9-23); CALCIUM LEVEL 7.7 MG/DL (8.3-10.6); CARBON DIOXIDE LEVEL 23 MMOL/L (20-31); CHLORIDE LEVEL 113 MMOL/L (98-107); CREATININE FOR GFR 1.21 MG/DL (0.70-1.30); GLOMERULAR FILTRATION RATE > 60.0 (>42); GLUCOSE, FASTING 130 MG/DL (74-106); POTASSIUM SERUM 4.2 MMOL/L (3.5-5.1); SODIUM LEVEL 144 MMOL/L (136-145)
[2024-05-04 08:00] VITALS: BP 138/65; TEMP 98.6; O2SAT 94
[2024-05-04 12:00] VITALS: BP 139/66; TEMP 99; O2SAT 93
[2024-05-04 20:31] VITALS: BP 116/64; TEMP 98.8; O2SAT 95
[2024-05-04] MEDS: CEFDINIR 300 MG CAP (OMNICEF) PO SCH (20:34)
[2024-05-05] VITALS (8 sets, daily range): BP systolic 140–162; BP diastolic 70–89; TEMP 98.3–100.8; O2SAT 93–96
[2024-05-05] MEDS: ACETAMINOPHEN 325 MG TAB PO PRN (04:28)
[2024-05-05 05:09] LABS: IONIZED CALCIUM 4.2 MG/DL (4.5-5.3)
[2024-05-05 05:15] LABS: BASO % 0.3 % (0.0-1.0); EOS # 0.1 10^3/uL (0.0-0.5); EOS % 0.5 % (0.0-3.0); HEMATOCRIT 37.4 % (42.0-52.0); HEMOGLOBIN 12.1 g/dl (13.5-17.5); LYMPH # 0.6 10^3/uL (1.5-5.0); LYMPH % 5.5 % (24.0-44.0); MEAN CORPUSCULAR HEMOGLOBIN 33.1 pg (27.0-33.0); MEAN CORPUSCULAR HGB CONC 32.4 g/dl (32.0-36.5); MEAN CORPUSCULAR VOLUME 102.2 fl (80.0-96.0); MONO # 0.9 10^3/uL (0.0-0.8); MONO % 8.1 % (2.0-8.0); NEUTROPHILS # 9.2 10^3/uL (1.5-8.5); NEUTROPHILS % 85.2 % (36.0-66.0); PLATELET COUNT, AUTOMATED 115 10^3/uL (150-450); RED BLOOD COUNT 3.66 10^6/uL (4.30-6.10); WHITE BLOOD COUNT 10.7 10^3/uL (4.0-10.0)
[2024-05-05 05:31] LABS: C REACTIVE PROTEIN QUANTITATIV 4.02 MG/DL (<1.0)
[2024-05-05] MEDS: PIPERACILLIN/TAZOBACTAM SOD 4.5 GM in DEXTROSE 5% (D5W) ADV/MINI-BAG 50 ML IV SCH (05:31)
[2024-05-05 05:32] LABS: ERYTHROCYTE SEDIMENTATION RATE 37 mm/hr (0-20)
[2024-05-05] MEDS: HEPARIN SOD (PORCINE) 5000UNITS/ML 1ML VIAL/SYRINGE SC SCH (05:32)
[2024-05-05 05:36] LABS: ALBUMIN 2.6 G/DL (3.2-5.2); ALKALINE PHOSPHATASE 66 U/L (40-129); ALT/SGPT 10 U/L (7.0-40); AST/SGOT 44 U/L (<34); BILIRUBIN,TOTAL 0.5 MG/DL (0.3-1.2); BLOOD UREA NITROGEN 15 MG/DL (9-23); CALCIUM LEVEL 7.5 MG/DL (8.3-10.6); CARBON DIOXIDE LEVEL 23 MMOL/L (20-31); CHLORIDE LEVEL 113 MMOL/L (98-107); CREATININE FOR GFR 1.11 MG/DL (0.70-1.30); GLOMERULAR FILTRATION RATE > 60.0 (>42); GLUCOSE, FASTING 116 MG/DL (74-106); MAGNESIUM LEVEL 1.9 MG/DL (1.8-2.4); POTASSIUM SERUM 4.2 MMOL/L (3.5-5.1); SODIUM LEVEL 144 MMOL/L (136-145); TOTAL PROTEIN 5.9 G/DL (5.7-8.2)
[2024-05-05] MEDS: CALCIUM CARBONATE 500 MG CHEW U/D PO SCH (09:55)
[2024-05-05] MEDS: SODIUM CHLORIDE NASAL 0.65% SPRAY BTL (OCEAN) SCH (09:57)
[2024-05-05] MEDS: FLUTICASONE PROP 0.05% NASAL SPRAY 16 GM (FLONASE) NARES SCH (09:57)
[2024-05-06 04:11] VITALS: BP 142/72; TEMP 98; O2SAT 95
[2024-05-06 06:00] VITALS: BP 155/84
[2024-05-06 06:02] LABS: BASO % 0.2 % (0.0-1.0); EOS % 0.2 % (0.0-3.0); HEMATOCRIT 39.1 % (42.0-52.0); HEMOGLOBIN 12.5 g/dl (13.5-17.5); LYMPH # 0.5 10^3/uL (1.5-5.0); LYMPH % 4.2 % (24.0-44.0); MEAN CORPUSCULAR HEMOGLOBIN 32.6 pg (27.0-33.0); MEAN CORPUSCULAR VOLUME 102.1 fl (80.0-96.0); MONO # 0.8 10^3/uL (0.0-0.8); MONO % 6.8 % (2.0-8.0); NEUTROPHILS # 9.7 10^3/uL (1.5-8.5); NEUTROPHILS % 88.1 % (36.0-66.0); PLATELET COUNT, AUTOMATED 126 10^3/uL (150-450); RED BLOOD COUNT 3.83 10^6/uL (4.30-6.10)
[2024-05-06 06:20] LABS: BLOOD UREA NITROGEN 14 MG/DL (9-23); CALCIUM LEVEL 7.9 MG/DL (8.3-10.6); CARBON DIOXIDE LEVEL 21 MMOL/L (20-31); CHLORIDE LEVEL 107 MMOL/L (98-107); CREATININE FOR GFR 1.21 MG/DL (0.70-1.30); GLOMERULAR FILTRATION RATE > 60.0 (>42); GLUCOSE, FASTING 138 MG/DL (74-106); MAGNESIUM LEVEL 1.8 MG/DL (1.8-2.4); POTASSIUM SERUM 3.9 MMOL/L (3.5-5.1); SODIUM LEVEL 139 MMOL/L (136-145)
[2024-05-06] MEDS: ALBUTEROL 90 MCG/ACT 8GM HFA INHALER INH PRN (07:39)
[2024-05-06] MEDS: METOPROLOL TART 25 MG TABLET PO SCH (09:00)
[2024-05-06] MEDS: PANTOPRAZOLE 40MG TAB (PROTONIX) PO SCH (09:24)
[2024-05-06] MEDS: METOPROLOL 5 MG/5 ML VIAL IV STA (09:49)
[2024-05-06 10:02] VITALS: BP 138/76; O2SAT 95
[2024-05-06] MEDS: APIXABAN 5 MG TAB (ELIQUIS) PO SCH (10:09)
[2024-05-06] MEDS: METOPROLOL 5 MG/5 ML VIAL IV SCH (10:28)
[2024-05-06 10:49] VITALS: BP 124/77
[2024-05-06 12:00] VITALS: BP 154/60; TEMP 98.6; O2SAT 99
[2024-05-06 19:46] VITALS: BP 134/62; TEMP 98.6; O2SAT 89; O2SAT 96
[2024-05-06] MEDS: CEFDINIR 300 MG CAP (OMNICEF) PO SCH (21:09)
[2024-05-07 03:36] VITALS: BP 127/61; TEMP 98.8; O2SAT 96
[2024-05-07 07:29] LABS: CALCIUM LEVEL 7.5 MG/DL (8.3-10.6); CREATININE FOR GFR 1.29 MG/DL (0.70-1.30); GLOMERULAR FILTRATION RATE 58.1 (>42); POTASSIUM SERUM 3.5 MMOL/L (3.5-5.1)
[2024-05-07 12:00] VITALS: BP 136/68; TEMP 97.9; O2SAT 95
[2024-05-07 20:34] VITALS: BP 150/75; TEMP 100; O2SAT 88
[2024-05-07 20:40] VITALS: O2SAT 92; O2SAT 93
[2024-05-07 23:48] VITALS: TEMP 101
[2024-05-08 00:50] VITALS: TEMP 99.3; O2SAT 94
[2024-05-08 04:36] VITALS: BP 143/70; TEMP 97.6; O2SAT 95
[2024-05-08 06:05] LABS: BASO % 0.3 % (0.0-1.0); EOS # 0.1 10^3/uL (0.0-0.5); EOS % 1.7 % (0.0-3.0); HEMATOCRIT 37.2 % (42.0-52.0); HEMOGLOBIN 11.6 g/dl (13.5-17.5); LYMPH # 0.8 10^3/uL (1.5-5.0); LYMPH % 11.2 % (24.0-44.0); MEAN CORPUSCULAR HEMOGLOBIN 32.4 pg (27.0-33.0); MEAN CORPUSCULAR HGB CONC 31.2 g/dl (32.0-36.5); MEAN CORPUSCULAR VOLUME 103.9 fl (80.0-96.0); MONO % 13.6 % (2.0-8.0); NEUTROPHILS # 5.3 10^3/uL (1.5-8.5); NEUTROPHILS % 72.9 % (36.0-66.0); PLATELET COUNT, AUTOMATED 106 10^3/uL (150-450); RED BLOOD COUNT 3.58 10^6/uL (4.30-6.10); WHITE BLOOD COUNT 7.2 10^3/uL (4.0-10.0)
[2024-05-08 06:22] LABS: MAGNESIUM LEVEL 2.3 MG/DL (1.8-2.4)
[2024-05-08 09:02] VITALS: BP 161/76; TEMP 97.4; O2SAT 92
[2024-05-08] MEDS: IPRATROPIUM 0.5MG/ALBUTEROL 2.5MG INH SOL UD 3ML (DUONEB) NEB STA (09:34)
[2024-05-08] MEDS: methylPREDNISolone 125MG 2ML VIAL IV STA (09:40)
[2024-05-08 10:31] LABS: C REACTIVE PROTEIN QUANTITATIV 10.38 MG/DL (<1.0)
[2024-05-08] MEDS: guaiFENesin ER TABLET 600 MG TAB PO SCH (10:32)
[2024-05-08] MEDS: cefTRIAXone SOD 2 GM in DEXTROSE 5% (D5W) ADV/MINI-BAG 50 ML IV SCH (10:33)
[2024-05-08] MEDS: AZITHROMYCIN 250MG TABLET PO ONE (10:33)
[2024-05-08 10:39] LABS: PROCALCITONIN 0.31 ng/ml
[2024-05-08] MEDS: FUROSEMIDE 20MG/2ML VIAL IV ONE (11:44)
[2024-05-08] MEDS: IPRATROPIUM 0.5MG/ALBUTEROL 2.5MG INH SOL UD 3ML (DUONEB) NEB SCH (15:07)
[2024-05-08 20:18] VITALS: BP 155/75; TEMP 97.6; O2SAT 93
[2024-05-08] MEDS: methylPREDNISolone 40MG 1ML VIAL IV SCH (20:19)
[2024-05-08] MEDS: FORMOTEROL FUMARATE 20 MCG/2 ML INHALATION SOLUTION (PERFOROMIST) INH SCH (20:28)
[2024-05-08] MEDS: BUDESONIDE 0.5 MG/2 ML INHALATION SUSPENSION NEB SCH (20:28)
[2024-05-09 04:25] VITALS: BP 160/76; TEMP 96.8; O2SAT 93
[2024-05-09 05:38] LABS: BLOOD UREA NITROGEN 20 MG/DL (9-23); CALCIUM LEVEL 8.1 MG/DL (8.3-10.6); CARBON DIOXIDE LEVEL 28 MMOL/L (20-31); CHLORIDE LEVEL 107 MMOL/L (98-107); CREATININE FOR GFR 1.12 MG/DL (0.70-1.30); GLOMERULAR FILTRATION RATE > 60.0 (>42); GLUCOSE, FASTING 192 MG/DL (74-106); MAGNESIUM LEVEL 2.2 MG/DL (1.8-2.4); POTASSIUM SERUM 3.3 MMOL/L (3.5-5.1); SODIUM LEVEL 146 MMOL/L (136-145)
[2024-05-09] MEDS: AZITHROMYCIN 250MG TABLET PO SCH (09:19)
[2024-05-09] MEDS: POTASSIUM CHLORIDE 10MEQ SR TABLET PO ONE (09:20)
[2024-05-09] MEDS: KCL 10MEQ/100ML SWI (KRUN) 10 MEQ in IV 1 EA IV SCH (09:20)
[2024-05-09 12:00] VITALS: BP 129/69; TEMP 97.9; O2SAT 94
[2024-05-09 16:05] LABS: BLOOD UREA NITROGEN 20 MG/DL (9-23); CALCIUM LEVEL 8.1 MG/DL (8.3-10.6); CARBON DIOXIDE LEVEL 28 MMOL/L (20-31); CHLORIDE LEVEL 106 MMOL/L (98-107); CREATININE FOR GFR 1.06 MG/DL (0.70-1.30); GLOMERULAR FILTRATION RATE > 60.0 (>42); GLUCOSE, FASTING 156 MG/DL (74-106); SODIUM LEVEL 142 MMOL/L (136-145)
[2024-05-09 19:35] VITALS: BP 146/64; TEMP 98.4; O2SAT 92
[2024-05-09 20:00] VITALS: O2SAT 93
[2024-05-10 03:39] VITALS: BP 160/81; TEMP 97.5; O2SAT 95
[2024-05-10 04:30] VITALS: BP 157/76; O2SAT 94
[2024-05-10 07:15] LABS: BLOOD UREA NITROGEN 27 MG/DL (9-23); CALCIUM LEVEL 8.2 MG/DL (8.3-10.6); CARBON DIOXIDE LEVEL 28 MMOL/L (20-31); CHLORIDE LEVEL 105 MMOL/L (98-107); CREATININE FOR GFR 1.07 MG/DL (0.70-1.30); GLOMERULAR FILTRATION RATE > 60.0 (>42); GLUCOSE, FASTING 246 MG/DL (74-106); MAGNESIUM LEVEL 2.3 MG/DL (1.8-2.4); POTASSIUM SERUM 3.8 MMOL/L (3.5-5.1); SODIUM LEVEL 146 MMOL/L (136-145)
[2024-05-10 11:16] LABS: HEMOGLOBIN A1c 5.8 % (4.0-6.0)
[2024-05-10 11:50] VITALS: BP 157/76; TEMP 98.4; O2SAT 94
[2024-05-10 20:00] VITALS: O2SAT 95
[2024-05-10 20:37] VITALS: BP 130/59; TEMP 97.9; O2SAT 94
[2024-05-10 21:23] VITALS: BP 130/59
[2024-05-11 03:28] VITALS: BP 163/81; TEMP 97.7; O2SAT 94
[2024-05-11 05:04] VITALS: BP 158/78
[2024-05-11 05:50] LABS: BLOOD UREA NITROGEN 28 MG/DL (9-23); CALCIUM LEVEL 8.2 MG/DL (8.3-10.6); CARBON DIOXIDE LEVEL 29 MMOL/L (20-31); CHLORIDE LEVEL 108 MMOL/L (98-107); CREATININE FOR GFR 1.08 MG/DL (0.70-1.30); GLOMERULAR FILTRATION RATE > 60.0 (>42); GLUCOSE, FASTING 179 MG/DL (74-106); MAGNESIUM LEVEL 2.4 MG/DL (1.8-2.4); POTASSIUM SERUM 4.1 MMOL/L (3.5-5.1); SODIUM LEVEL 144 MMOL/L (136-145)
[2024-05-11 09:32] VITALS: BP 137/67
[2024-05-11] MEDS: predniSONE 20 MG TAB PO SCH (09:33)
[2024-05-11] MEDS: CEFDINIR 300 MG CAP (OMNICEF) PO SCH (09:33)
[2024-05-11] MEDS ORDERED: PRED10TA2 PO (12:02)
[2024-05-11] MEDS ORDERED: MUCI600T31 PO (12:02)
[2024-05-11] MEDS ORDERED: PRED20TA PO (12:02)
[2024-05-11] MEDS ORDERED: METO1TAB87 PO (12:02)
[2024-05-11] MEDS ORDERED: ELIQ5TAB PO (12:02)
[2024-05-11] MEDS ORDERED: PANT40TA29 PO (12:02)
[2024-05-11] MEDS ORDERED: FOLI1TAB11 PO (12:02)
[2024-05-11] MEDS ORDERED: THERTAB19 PO (12:02)
[2024-05-11] MEDS ORDERED: CEFD300CAP PO (12:02)
[2024-05-11] MEDS ORDERED: IPRA0.00 INH (12:06)
[2024-05-11] MEDS ORDERED: DOXY100C3 PO (12:06)
[2024-05-11 12:11] VITALS: BP 134/62; TEMP 97.7; O2SAT 93
[2024-05-11] MEDS ORDERED: TALK1KIT MC (13:31)
[2024-05-11] MEDS ORDERED: ASPI81TA26 PO (14:39)
[2024-05-12 21:17] LABS: MYCOPLASMA PNEUMONIAE IGG 2.9 (<=0.90)
== END 2024-05-11 15:29 | disposition home health service (06) | DRG 496 ==
LOC: M ED 20:47 → M ED INP 05-03 02:14 → M MSPAV 05-03 14:45
PROVIDERS: ADMIT Student in an Organized Health Care Education/Training Program; ATTEND General Practice
PROC: 0PSJ04Z Reposition Left Radius with Internal Fixation Device, Open Approach (ICD-10-PCS; 2024-05-03)
PROC: 0PSL04Z Reposition Left Ulna with Internal Fixation Device, Open Approach (ICD-10-PCS; 2024-05-03)
PROC: 0PPJ04Z Removal of Internal Fixation Device from Left Radius, Open Approach (ICD-10-PCS; principal; 2024-05-03 08:14)
PROC: B246ZZZ Ultrasonography of Right and Left Heart (ICD-10-PCS; 2024-05-08)
DX: S52.202B Unspecified fracture of shaft of left ulna, initial encounter for open fracture type I or II (principal); J44.1 Chronic obstructive pulmonary disease with (acute) exacerbation; S52.302B Unspecified fracture of shaft of left radius, initial encounter for open fracture type I or II; S52.502B Unspecified fracture of the lower end of left radius, initial encounter for open fracture type I or II; I10 Essential (primary) hypertension; I83.92 Asymptomatic varicose veins of left lower extremity; I48.91 Unspecified atrial fibrillation; F17.210 Nicotine dependence, cigarettes, uncomplicated; N49.2 Inflammatory disorders of scrotum; F10.10 Alcohol abuse, uncomplicated; I27.20 Pulmonary hypertension, unspecified; R26.89 Other abnormalities of gait and mobility; W00.0XXA Fall on same level due to ice and snow, initial encounter; Y92.9 Unspecified place or not applicable; Y93.9 Activity, unspecified; Y99.9 Unspecified external cause status; Z85.51 Personal history of malignant neoplasm of bladder; Z90.49 Acquired absence of other specified parts of digestive tract; Z79.02 Long term (current) use of antithrombotics/antiplatelets; Z79.899 Other long term (current) drug therapy

== ENCOUNTER → 2024-05-19 | Outpatient (CLI) | payer MEDICARE ==
[~2024-05-19] MED LIST changes: +ALBU8.5H INH; +CEFD300CAP PO; +DOXY100C3 PO; +ELIQ5TAB PO; +FLUT1BLS8 INH; +FOLI1TAB11 PO; +IPRA0.00 INH; +METO1TAB87 PO; +MUCI600T31 PO; +PANT40TA29 PO; +PRED10TA2 PO; +TALK1KIT MC; +THERTAB19 PO
== END ==
LOC: M SOG 07:58
PROVIDERS: ATTEND Orthopaedic Surgery
DX: S52.202B Unspecified fracture of shaft of left ulna, initial encounter for open fracture type I or II (principal)

== ENCOUNTER → 2024-05-24 | Outpatient (REF) | payer MEDICARE | LOC: M LAB REF 12:55 | PROVIDERS: ATTEND Internal Medicine | DX: J44.9 Chronic obstructive pulmonary disease, unspecified (principal) ==

== ENCOUNTER → 2024-06-02 | Outpatient (CLI) | payer MEDICARE | LOC: M SOG 07:55 | PROVIDERS: ATTEND Orthopaedic Surgery | DX: S52.202B Unspecified fracture of shaft of left ulna, initial encounter for open fracture type I or II (principal); S52.302B Unspecified fracture of shaft of left radius, initial encounter for open fracture type I or II; Z48.89 Encounter for other specified surgical aftercare ==

== ENCOUNTER → 2024-06-15 | Outpatient (REF) | payer MEDICARE ==
[2024-06-15 15:18] LABS: APPEARANCE, URINE CLEAR (CLEAR); BACTERIA, URINE AUTO NEGATIVE (NEGATIVE); BILIRUBIN, URINE AUTO NEGATIVE (NEGATIVE); BLOOD, URINE BLOOD 1+ (NEGATIVE); COLOR, URINE YELLOW (YELLOW); GLUCOSE, URINE (UA) AUTO NEGATIVE (NEGATIVE); KETONE, URINE AUTO NEGATIVE (NEGATIVE); LEUKOCYTE ESTERASE, URINE AUTO NEGATIVE (NEGATIVE); NITRITE, URINE AUTO NEGATIVE (NEGATIVE); PROTEIN, URINE AUTO NEGATIVE (NEGATIVE); RBC, URINE AUTO 3 /HPF (0-3); SPECIFIC GRAVITY URINE AUTO 1.013 (1.002-1.035); SQUAMOUS EPITHELIAL CELL UR AU 0 /HPF (0-6); UROBILINOGEN, URINE AUTO 0.2 mg/dL (0.0-2.0); WBC, URINE AUTO 1 /HPF (0-3)
== END ==
LOC: M SMT 14:55
PROVIDERS: ATTEND Urology
DX: Z85.51 Personal history of malignant neoplasm of bladder (principal)

== ENCOUNTER → 2024-07-06 | Outpatient (CLI) | payer MEDICARE | LOC: M SOG 07:54 | PROVIDERS: ATTEND Orthopaedic Surgery | DX: S52.202E Unspecified fracture of shaft of left ulna, subsequent encounter for open fracture type I or II with routine healing (principal) ==

== ENCOUNTER → 2024-12-09 | Outpatient (CLI) | payer MEDICARE | LOC: M SOG 07:21 | PROVIDERS: ATTEND Orthopaedic Surgery | DX: S52.202E Unspecified fracture of shaft of left ulna, subsequent encounter for open fracture type I or II with routine healing (principal) ==

== ENCOUNTER → 2024-12-22 | Outpatient (REF) | payer MEDICARE ==
[2024-12-22 18:04] LABS: APPEARANCE, URINE CLEAR (CLEAR); BACTERIA, URINE AUTO NEGATIVE (NEGATIVE); BILIRUBIN, URINE AUTO NEGATIVE (NEGATIVE); BLOOD, URINE BLOOD 1+ (NEGATIVE); GLUCOSE, URINE (UA) AUTO NEGATIVE (NEGATIVE); KETONE, URINE AUTO NEGATIVE (NEGATIVE); LEUKOCYTE ESTERASE, URINE AUTO NEGATIVE (NEGATIVE); MUCUS, URINE SMALL (NEGATIVE); NITRITE, URINE AUTO NEGATIVE (NEGATIVE); PROTEIN, URINE AUTO NEGATIVE (NEGATIVE); RBC, URINE AUTO 1 /HPF (0-3); SPECIFIC GRAVITY URINE AUTO 1.011 (1.002-1.035); SQUAMOUS EPITHELIAL CELL UR AU 0 /HPF (0-6); UROBILINOGEN, URINE AUTO 0.2 mg/dL (0.0-2.0); WBC, URINE AUTO 1 /HPF (0-3)
== END ==
LOC: M SMT 16:54
PROVIDERS: ATTEND Urology
DX: Z85.51 Personal history of malignant neoplasm of bladder (principal)

== ENCOUNTER → 2024-12-23 | Outpatient (CLI) | payer MEDICARE | LOC: M RAD 12:21 | PROVIDERS: ATTEND Internal Medicine | DX: I70.213 Atherosclerosis of native arteries of extremities with intermittent claudication, bilateral legs (principal) ==